=== PATIENT | male | born 1980 | race Caucasian/White ===

== ENCOUNTER 2021-12-29 03:49 | Inpatient (IN) | payer OTHER, SELFPAY ==
[2021-12-29] MEDS ORDERED: Ketamine 50 MG/ML (10ML VIAL) ONE (04:15)
[2021-12-29 04:28] LABS: #Basophils 0.1 thou/uL (0.0-0.2); #Eosinphils 0.1 thou/uL (0.0-0.7); #Lymphocytes 1.6 thou/uL (1.20-3.40); #Monocytes 0.9 thou/uL (0.11-0.59); #Neutrophils 15.6 thou/uL (1.40-6.50); %Basophils 0.6 % (0.0-1.0); %Eosinophils 0.4 % (0.0-10.0); %Lymphocytes 8.7 % (21.0-51.0); %Monocytes 4.9 % (0.0-10.0); %Neutrophils 85.5 % (42.0-75.0); Hemoglobin 14.9 g/dL (14.0-18.0); Mean Corpuscular HGB CONC 35.1 g/dL (32.0-36.0); Mean Corpuscular Hemoglobin 35.4 pg (27.0-31.0); Mean Platelet Volume 8.9 fL (7.4-10.4); Platelet Count 168 thou/uL (130-400); RBC Distribution Width 11.7 % (11.5-14.5); Red Blood Cell (RBC) Count 4.21 mill/uL (4.70-6.10); White Blood Cell (WBC) Count 18.3 thou/uL (4.8-10.8)
[2021-12-29 04:46] LABS: ALT (SGPT) 65 U/L (8-55); AST (SGOT) 55 U/L (5-34); Albumin 3.9 g/dL (3.5-5.0); Alkaline Phosphatase 66 U/L (40-110); Anion Gap 16 mmol/L (10-20); BUN (Urea Nitrogen) 13 mg/dL (8.9-20.6); Bilirubin, Total 0.2 mg/dL (0.2-1.2); Calc. Creatinine Clearance 0 mL/min (70-130); Calcium 8.6 mg/dL (7.8-10.44); Carbon Dioxide 21 mmol/L (22-29); Chloride 104 mmol/L (98-107); Estimated GFR 109; Glucose 96 mg/dL (70-105); Potassium 3.6 mmol/L (3.5-5.1); Protein, Total 6.9 g/dL (6.0-8.3); Sodium 137 mmol/L (136-145)
[2021-12-29] MEDS ORDERED: Ondansetron PF 4 MG/2 ML Vial IVP PRN (05:00)
[2021-12-29] MEDS ORDERED: Promethazine HCl 25 MG/ML VIAL IM PRN ×2 (05:00→13:28)
[2021-12-29] MEDS ORDERED: hydrALAZINE 20 MG/ML VIAL SLOW IVP PRN (05:00)
[2021-12-29] MEDS ORDERED: traMADol HCl 50 MG TAB PO PRN (05:05)
[2021-12-29] MEDS ORDERED: Boostrix 0.5 ML (Tdap) VIAL ONE (05:17)
[2021-12-29] MEDS ORDERED: Acetaminophen 500 MG TAB PO SCH (06:00)
[2021-12-29] MEDS ORDERED: traMADol HCl 50 MG TAB PO SCH (06:00)
[2021-12-29] MEDS ORDERED: Fentanyl 100 MCG/2 ML VIAL ONE ×2 (06:27→12:52)
[2021-12-29 06:59] LABS: SARS-CoV-2 NAA Rapid Test Not Detected (NotDetected)
[2021-12-29] MEDS: Acetaminophen/Codeine 30-300mg Tablet PO SCH ×3 (07:22→20:02)
[2021-12-29] MEDS: Morphine 2 MG/ML VIAL SLOW IVP PRN ×3 (07:22→18:28)
[2021-12-29] MEDS: Sodium Chloride 0.9% 1,000 ML IV SCH ×3 (07:23→20:03)
[2021-12-29] MEDS ORDERED: Morphine 4 MG/ML VIAL ONE (09:09)
[2021-12-29] MEDS ORDERED: CEFAZOLIN 2 GM in Sodium Chloride 0.9% 100 ML IVPB SCH ×2 (09:15→14:00)
[2021-12-29 09:39] VITALS: BMI 25.7
[2021-12-29] MEDS: Polyethylene Glycol 3350 17 GM Packet PO SCH (09:44)
[2021-12-29] MEDS: Famotidine 20 MG TAB PO SCH ×2 (09:44→20:03)
[2021-12-29] MEDS ORDERED: CEFAZOLIN 2 GM VIAL ONE (10:03)
[2021-12-29] MEDS ORDERED: Sodium Chloride 0.9% 100 ML ONE (10:03)
[2021-12-29] MEDS ORDERED: fentaNYL Citrate/PF 100 MCG/2 ML SYRINGE ONE (10:36)
[2021-12-29] MEDS ORDERED: Neomycin-Polymyxin 1 ML AMP ONE ×4 (10:49→11:17)
[2021-12-29] MEDS ORDERED: Lidocaine 1% PF 5 ML VIAL ONE (10:49)
[2021-12-29] MEDS ORDERED: Bupivacaine PF 0.5% 30 ML VIAL ONE (10:49)
[2021-12-29] MEDS ORDERED: Ketorolac Tromethamine 30 MG/ML VIAL ONE (10:49)
[2021-12-29] MEDS ORDERED: Dexamethasone 20 MG/5 ML VIAL ONE (10:49)
[2021-12-29] MEDS ORDERED: Ondansetron PF 4 MG/2 ML Vial ONE (10:49)
[2021-12-29] MEDS ORDERED: PROPOFOL 200 MG/20 ML VIAL ONE (10:49)
[2021-12-29 11:46] LABS: SARS-CoV-2 IgG Spike Ab Interp Reactive (NonReactive); SARS-CoV-2 IgG Spike Conc/Indx 54.3 AU/mL (0.00-50.0)
[2021-12-29] MEDS ORDERED: HYDROmorphone 2 MG/ML VIAL SLOW IVP PRN (13:28)
[2021-12-29] MEDS ORDERED: Ondansetron HCl/PF 4 MG/2 ML Vial IVP PRN (13:28)
[2021-12-29] MEDS ORDERED: Promethazine HCl 25 MG/ML VIAL IVPB PRN (13:28)
[2021-12-29] MEDS ORDERED: ceFAZolin 2 GM/Dextrose 50 ML 2 GM in Premix Bag 1 BAG IVPB SCH (14:00)
[2021-12-29] MEDS: Ketorolac Tromethamine 30 MG/ML VIAL IVP SCH ×2 (14:15→18:20)
[2021-12-29] MEDS: CEFAZOLIN 2 GM in Sodium Chloride 0.9% 100 ML IVPB SCH (18:21)
[2021-12-30] MEDS: Ketorolac Tromethamine 30 MG/ML VIAL IVP SCH ×2 (00:38→06:33)
[2021-12-30] MEDS: Acetaminophen/Codeine 30-300mg Tablet PO SCH ×4 (00:39→19:41)
[2021-12-30] MEDS: CEFAZOLIN 2 GM in Sodium Chloride 0.9% 100 ML IVPB SCH ×3 (03:48→19:40)
[2021-12-30] MEDS: Cyclobenzaprine 10 MG TAB PO PRN ×2 (03:56→20:37)
[2021-12-30] MEDS: Morphine 2 MG/ML VIAL SLOW IVP PRN (03:56)
[2021-12-30 06:27] LABS: #Lymphocytes 1.7 thou/uL (1.20-3.40); #Monocytes 1.2 thou/uL (0.11-0.59); #Neutrophils 9.3 thou/uL (1.40-6.50); %Basophils 0.1 % (0.0-1.0); %Eosinophils 0.2 % (0.0-10.0); %Monocytes 9.8 % (0.0-10.0); Hemoglobin 13.3 g/dL (14.0-18.0); Mean Corpuscular HGB CONC 32.8 g/dL (32.0-36.0); Mean Corpuscular Hemoglobin 33.3 pg (27.0-31.0); Mean Platelet Volume 9.8 fL (7.4-10.4); Platelet Count 158 thou/uL (130-400); White Blood Cell (WBC) Count 12.2 thou/uL (4.8-10.8)
[2021-12-30 06:50] LABS: Anion Gap 11 mmol/L (10-20); BUN (Urea Nitrogen) 9 mg/dL (8.9-20.6); Calc. Creatinine Clearance 159 mL/min (70-130); Calcium 8.8 mg/dL (7.8-10.44); Carbon Dioxide 26 mmol/L (22-29); Chloride 105 mmol/L (98-107); Estimated GFR 115; Glucose 111 mg/dL (70-105); Potassium 3.8 mmol/L (3.5-5.1); Sodium 138 mmol/L (136-145)
[2021-12-30] MEDS: Enoxaparin Sodium 40 MG/0.4 ML SYRINGE SC SCH (09:33)
[2021-12-30] MEDS: Famotidine 20 MG TAB PO SCH ×2 (09:34→20:34)
[2021-12-30] MEDS: Polyethylene Glycol 3350 17 GM Packet PO SCH (10:03)
[2021-12-30] MEDS ORDERED: Morphine 2 MG/ML VIAL SLOW IVP SCH (10:45)
[2021-12-30] MEDS ORDERED: Gabapentin 300 MG CAP PO SCH (11:00)
[2021-12-30] MEDS: Ibuprofen 200 MG TAB PO SCH ×3 (12:29→20:37)
[2021-12-30] MEDS: Gabapentin 300 MG CAP PO SCH ×2 (15:25→19:50)
[2021-12-31] MEDS: Acetaminophen/Codeine 30-300mg Tablet PO SCH ×4 (00:23→17:15)
[2021-12-31] MEDS: CEFAZOLIN 2 GM in Sodium Chloride 0.9% 100 ML IVPB SCH (03:01)
[2021-12-31] MEDS: Ibuprofen 200 MG TAB PO SCH (03:01)
[2021-12-31] MEDS: Enoxaparin Sodium 40 MG/0.4 ML SYRINGE SC SCH (09:36)
[2021-12-31] MEDS: Famotidine 20 MG TAB PO SCH (09:36)
[2021-12-31] MEDS: Polyethylene Glycol 3350 17 GM Packet PO SCH (09:36)
[2021-12-31] MEDS: Gabapentin 300 MG CAP PO SCH ×2 (09:37→14:12)
[2021-12-31] MEDS: Cyclobenzaprine 10 MG TAB PO PRN ×2 (09:38→17:15)
[2021-12-31] MEDS ORDERED: Ibuprofen 200 MG TAB PO SCH (14:00)
[2021-12-31 16:44] VITALS: BP 113/61; TEMP 98.5
== END 2021-12-31 17:33 | disposition home or self-care (01) | DRG 494 ==
LOC: ERS 04:07 → SJJU 05:00
PROVIDERS: ADMIT Surgery; ATTEND Surgery
PROC: 0QSJ04Z Reposition Right Fibula with Internal Fixation Device, Open Approach (ICD-10-PCS; principal; 2021-12-29)
PROC: 0QSG04Z Reposition Right Tibia with Internal Fixation Device, Open Approach (ICD-10-PCS; 2021-12-29)
DX: S82.841B Displaced bimalleolar fracture of right lower leg, initial encounter for open fracture type I or II (principal); V86.59XA Driver of other special all-terrain or other off-road motor vehicle injured in nontraffic accident, initial encounter; Z20.822 Contact with and (suspected) exposure to COVID-19; S82.61XB Displaced fracture of lateral malleolus of right fibula, initial encounter for open fracture type I or II
CPT/HCPCS: 36415; 76000; 80048; 80053; 85025; 86769; 90715; C1713; G0390; J0690; J1100; J1650; J1885; J2270; J2405; J2704; J3010; J3490; J7050; S0020; U0002

== ENCOUNTER 2025-04-13 14:59 | Outpatient (CLI) | payer OTHER | END 2025-04-13 15:00 | disposition home or self-care (01) | LOC: SCSMRI 14:59 | PROVIDERS: ATTEND Surgery | DX: M25.511 Pain in right shoulder (principal); S46.211A Strain of muscle, fascia and tendon of other parts of biceps, right arm, initial encounter; M75.121 Complete rotator cuff tear or rupture of right shoulder, not specified as traumatic | CPT/HCPCS: 70250 ==